=== PATIENT | male | born 1970 | race American Indian/Alaskan Native ===

== ENCOUNTER 2021-07-16 02:56 | Emergency (ER) | payer SELFPAY ==
[2021-07-16] MEDS ORDERED: HALOPERIDOL LACTATE 5 MG/1 ML INJ IM PRN (03:03)
[2021-07-16] MEDS ORDERED: TETANUS,DIPH,PERTUSS(ACELL) VACCINE 0.5 ML SYRINGE IM ONE (03:03)
[2021-07-16] MEDS ORDERED: LORazepam 2 MG/ML VIAL IM PRN (03:03)
--- NOTE | 2021-07-16 03:04 | Emergency Department Report ---
ED General Adult HPI - General Chief complaint: Alcohol Stated complaint: ETOH Time Seen by Provider: 07/16/21 02:58 Source: patient, EMS (Verbal report received from emergency medical services. EMS documentation not available at time of chart dictation ), RN notes reviewed Limitations: Altered Mental Status, Physical Limitation, Other (Alcohol intoxication) - History of Present Illness Initial comments: This is a 51-year-old gentleman. He is brought to the hospital by emergency medical services with an EMS articulated complaint of "drunk." As per verbal report from emergency medical services, the patient was found on the street by passersby or police department, and 911 was activated. The patient is awake, intoxicated, moving 4 extremities. He does not endorse physical pain. The patient will follow some commands. He has abrasions to left scalp. He is not accompanied by friends or family at this time for collateral information. The patient is indicating that he needs to go to the bathroom and urinate. -: unknown Location: head - Related Data Previous Rx's Medication Instructions Recorded Last Taken Type Multivitamin with Folic Acid [[facility] 400 mcg PO QDAY #30 tablet 07/16/21 Unknown Rx One Daily Essential Tablet] chlordiazePOXIDE [Librium] 25 mg PO Q6H PRN #25 capsule 07/16/21 Unknown Rx Allergies Allergy/AdvReac Type Severity Reaction Status Date / Time Unable to Assess Allergy Unverified 07/16/21 03:32 ED Review of Systems ROS: Stated complaint: ETOH Other details as noted in HPI Comment: Unobtainable due to pts medical conditions ED Past Medical Hx - Medications Home Medications: Home Medications Medication Instructions Recorded Confirmed Last Taken Type Multivitamin with Folic Acid [[facility] 400 mcg PO QDAY #30 tablet 07/16/21 Unknown Rx One Daily Essential Tablet] chlordiazePOXIDE [Librium] 25 mg PO Q6H PRN #25 capsule 07/16/21 Unknown Rx ED Physical Exam - General Limitations: Altered Mental Status General appearance: appears intoxicated - Head Head exam: Present: normocephalic, other (Left temporal abrasion) - Eye Eye exam: Present: normal appearance, EOMI - ENT ENT exam: Present: normal exam, normal orophraynx, mucous membranes moist, normal external ear exam - Neck Neck exam: Present: normal inspection, full ROM. Absent: tenderness, meningismus - Respiratory Respiratory exam: Present: decreased breath sounds. Absent: respiratory distres s, wheezes, rales, rhonchi, stridor - Cardiovascular Cardiovascular Exam: Present: regular rate, normal rhythm, normal heart sounds. Absent: bradycardia, tachycardia, irregular rhythm, systolic murmur, diastolic murmur, rubs, gallop - GI/Abdominal GI/Abdominal exam: Present: soft. Absent: distended, tenderness, guarding, rebound, rigid, pulsatile mass - Rectal Rectal exam: Present: deferred - Extremities Exam Extremities exam: Present: normal inspection, full ROM, other (2+ pulses noted in the bilateral upper and lower extremities. There is no palpable cord. negative Homans sign. Muscular compartments are soft. The pelvis is stable.). Absent: pedal edema, calf tenderness - Back Exam Back exam: Present: normal inspection. Absent: tenderness, CVA tenderness (R), CVA tenderness (L), paraspinal tenderness, vertebral tenderness - Neurological Exam Neurological exam: Present: other (Patient is awake. The patient is moving 4 extremities.) - Psychiatric Psychiatric exam: Present: flat affect - Skin Skin exam: Present: warm, abrasion, ecchymosis ED Course Vital Signs 07/16/21 07/16/21 07/16/21 02:56 03:12 03:30 Temperature 97.6 F Pulse Rate 81 Respiratory 16 16 Rate Blood Pressure 135/82 Blood Pressure [Right] O2 Sat by Pulse 91 93 97 Oximetry 07/16/21 07/16/21 07/16/21 03:42 04:00 04:30 Temperature Pulse Rate 71 97 H 70 Respiratory 14 18 15 Rate Blood Pressure 135/79 137/101 122/79 Blood Pressure [Right] O2 Sat by Pulse 99 98 97 Oximetry 07/16/21 07/16/21 07/16/21 05:00 05:30 06:00 Temperature Pulse Rate 80 65 74 Respiratory 15 13 12 Rate Blood Pressure 129/72 121/61 106/59 Blood Pressure [Right] O2 Sat by Pulse 88 98 97 Oximetry 07/16/21 07/16/21 07/16/21 06:30 07:00 07:30 Temperature Pulse Rate 79 67 70 Respiratory 14 13 11 L Rate Blood Pressure 102/58 116/72 104/63 Blood Pressure [Right] O2 Sat by Pulse 99 99 99 Oximetry 07/16/21 08:20 Temperature Pulse Rate 70 Respiratory 12 Rate Blood Pressure Blood Pressure 104/63 [Right] O2 Sat by Pulse 99 Oximetry - Reevaluation(s) Reevaluation #1: 07/16/21 04:33 Differential diagnosis, including but not limited to: Alcohol intoxication, electrolyte derangement, closed head injury, cervical spine injury, abrasion Assessment and plan: 51-year-old gentleman who is obviously intoxicated, negative CT scan of the brain and cervical spine for traumatic findings, laboratory studies unremarkable except for elevated blood alcohol level as expected. O2 sat 91% reviewed and appreciated, x-ray the chest pending. Plan is to observe pending clinical sobriety, or, if a sober adult can be found that can pick the patient up, discharge this patient with a sober adult. He is given a tetanus vaccination. Reassess after x-ray has been performed. 07/16/21 05:25 X-ray of the chest is negative for acute findings. Patient does require some degree of supplemental oxygen, 2 L, likely secondary to alcohol intoxication. Care be transferred to the oncoming ER provider, Dr Evelyn Connolly, to reassess when clinically sober, and to ascertain need for supplemental oxygen. Anticipate that patient should be able to be discharged once sober, and once oxygenation improves, with alcohol metabolism 07/17/21 16:25 ED Medical Decision Making - Lab Data Result diagrams: 07/16/21 03:11 07/16/21 03:11 Vital Signs 07/16/21 07/16/21 07/16/21 02:56 03:12 03:30 Temperature 97.6 F Pulse Rate 81 Respiratory 16 16 Rate Blood Pressure 135/82 O2 Sat by Pulse 91 93 97 Oximetry 07/16/21 07/16/21 03:42 04:00 Temperature Pulse Rate 71 97 H Respiratory 14 18 Rate Blood Pressure 135/79 137/101 O2 Sat by Pulse 99 98 Oximetry Lab Results 07/16/21 07/16/21 07/16/21 Range/Units 03:11 03:11 03:11 WBC 7.0 (4.5-11.0) K/mm3 RBC 3.89 (3.65-5.03) M/mm3 Hgb 13.0 (11.8-15.2) gm/dl Hct 39.1 (35.5-45.6) % MCV 100 H (84-94) fl MCH 33 H (28-32) pg MCHC 33 (32-34) % RDW 14.1 (13.2-15.2) % Plt Count 231 (140-440) K/mm3 Sodium 141 (137-145) mmol/L Potassium 3.5 L (3.6-5.0) mmol/L Chloride 102.6 (98-107) mmol/L Carbon Dioxide 24 (22-30) mmol/L Anion Gap 18 mmol/L BUN 12 (9-20) mg/dL Creatinine 0.9 (0.8-1.3) mg/dL Estimated GFR > 60 ml/min BUN/Creatinine Ratio 13 % Glucose 120 H (75-100) mg/dL Calcium 8.9 (8.4-10.2) mg/dL Magnesium 1.90 (1.7-2.3) mg/dL Total Creatine Kinase (55-170) units/L Salicylates (2.8-20.0) mg/dL Acetaminophen (10.0-30.0) ug/mL Plasma/Serum Alcohol 0.54 H (0-0.07) % 07/16/21 07/16/21 07/16/21 Range/Units 03:11 03:11 03:11 WBC (4.5-11.0) K/mm3 RBC (3.65-5.03) M/mm3 Hgb (11.8-15.2) gm/dl Hct (35.5-45.6) % MCV (84-94) fl MCH (28-32) pg MCHC (32-34) % RDW (13.2-15.2) % Plt Count (140-440) K/mm3 Sodium (137-145) mmol/L Potassium (3.6-5.0) mmol/L Chloride (98-107) mmol/L Carbon Dioxide (22-30) mmol/L Anion Gap mmol/L BUN (9-20) mg/dL Creatinine (0.8-1.3) mg/dL Estimated GFR ml/min BUN/Creatinine Ratio % Glucose (75-100) mg/dL Calcium (8.4-10.2) mg/dL Magnesium (1.7-2.3) mg/dL Total Creatine Kinase 797 H (55-170) units/L Salicylates < 0.3 L (2.8-20.0) mg/dL Acetaminophen 5.0 L (10.0-30.0) ug/mL Plasma/Serum Alcohol (0-0.07) % - Radiology Data Radiology results: pending, report reviewed, image reviewed CT HEAD WITHOUT CONTRAST INDICATION / CLINICAL INFORMATION: Alcohol Intoxication closed head injury. TECHNIQUE: CT head was performed without administration of intravenous contrast. All CT scans at this location are performed using CT dose reduction for ALARA by means of automated exposure control. COMPARISON: None available. FINDINGS: CEREBRAL HEMISPHERES: There is no evidence of large territorial infarction or significant abnormality of minor- white matter differentiation. No midline shift. Ventricles appear within normal limits. Basal cisterns patent. HEMORRHAGE: None. CEREBELLUM / BRAINSTEM: No significant abnormality. ORBITS: No significant abnormality. SOFT TISSUES: No significant abnormality. SKULL: No significant abnormality. PARANASAL SINUSES / MASTOID AIR CELLS: Partial complete opacification of anterior ethmoid air cells is demonstrated. Ness bullosa middle turbinate. Mastoid air cells clear. ADDITIONAL FINDINGS: None. IMPRESSION: 1. No acute intracranial abnormality. Signer Name: Rob Astudillo II, MD Signed: 07/16/2021 2:53 AM Workstation Name: [id number] CT CERVICAL SPINE WITHOUT CONTRAST INDICATION / CLINICAL INFORMATION: Alcohol Intoxication closed head injury. TECHNIQUE: Axial CT images were obtained through the cervical spine. Sagittal and coronal reformatted images were produced. All CT scans at this location are performed using CT dose reduction for ALARA by means of automated exposure control. COMPARISON: CT head same date. FINDINGS: SKULL BASE: No significant abnormality of the skull base. CRANIOCERVICAL JUNCTION: No significant abnormality of the craniocervical junct ion. ALIGNMENT: No significant abnormality of alignment. VERTEBRAL BODIES: Vertebral body heights fairly uniform throughout. No acute fracture. DISK SPACES: Mild/moderate loss of intervertebral disc space most prevalent at C6-7 and C7-T1. FACET JOINTS: No significant abnormality of facet articulations. No acute fractures. CENTRAL CANAL: No severe central stenosis. SOFT TISSUES: No significant abnormality of soft tissues or musculature. THYROID: No significant abnormality. UPPER CHEST: No significant abnormality of the visualized chest. ADDITIONAL FINDINGS: None. IMPRESSION: 1. No evidence of acute osseous injury. Signer Name: Rob Astudillo II, MD Signed: 07/16/2021 2:55 AM Workstation Name: [id number] Critical care attestation.: If time is entered above; I have spent that time in minutes in the direct care of this critically ill patient, excluding procedure time. ED Disposition Clinical Impression: Alcohol intoxication, Closed head injury Disposition: HOME / SELF CARE / HOMELESS Is pt being admited?: No Does the pt Need Aspirin: No Condition: Stable Additional Instructions: Do not drive or operate motor vehicles until cleared to do so by a primary care doctor. Discontinue alcohol consumption. Take the medications as directed, use the Librium medication as needed for sensation of alcohol withdrawal, such as shakes or tremors. Follow-up with your primary care doctor or health department within the next week. Please return to the emergency room right away with new pain, worsened pain, migration of pain, projectile vomiting, change in mental status, confusion, smiley bility tolerate liquid feeds, new, worsened or different symptoms not present on the initial emergency room evaluation Prescriptions: Multivitamin with Folic Acid [[facility] One Daily Essential Tablet] 400 mcg PO QDAY #30 tablet chlordiazePOXIDE [Librium] 25 mg PO Q6H PRN #25 capsule PRN Reason: Alcohol Withdrawal Referrals: [facility] [Outside] - 3-5 Days [facility] [Outside] - 3-5 Days
[2021-07-16 03:46] LABS: Hematocrit 39.1 % (35.5-45.6); Mean Corpuscular HGB Conc 33 % (32-34); Mean Corpuscular Volume 100 fl (84-94); Platelet Count 231 K/mm3 (140-440); Red Blood Count 3.89 M/mm3 (3.65-5.03); Red Cell Distribution Width 14.1 % (13.2-15.2)
[2021-07-16 03:54] LABS: BUN/Creatinine Ratio 13; Blood Urea Nitrogen 12 mg/dL (9-20); Calcium 8.9 mg/dL (8.4-10.2); Hemolysis Index 9
--- NOTE | 2021-07-16 03:57 | Cat Scan Report ---
CT HEAD WITHOUT CONTRAST INDICATION / CLINICAL INFORMATION: Alcohol Intoxication closed head injury. TECHNIQUE: CT head was performed without administration of intravenous contrast. All CT scans at this location are performed using CT dose reduction for ALARA by means of automated exposure control. COMPARISON: None available. FINDINGS: CEREBRAL HEMISPHERES: There is no evidence of large territorial infarction or significant abnormality of minor-white matter differentiation. No midline shift. Ventricles appear within normal limits. Basa l cisterns patent. HEMORRHAGE: None. CEREBELLUM / BRAINSTEM: No significant abnormality. ORBITS: No significant abnormality. SOFT TISSUES: No significant abnormality. SKULL: No significant abnormality. PARANASAL SINUSES / MASTOID AIR CELLS: Partial complete opacification of anterior ethmoid air cells i s demonstrated. Ness bullosa middle turbinate. Mastoid air cells clear. ADDITIONAL FINDINGS: None. IMPRESSION: 1. No acute intracranial abnormality. Signer Name: Rob Astudillo II, MD Signed: 07/16/2021 3:53 AM Workstation Name: [id number]
--- NOTE | 2021-07-16 03:59 | Cat Scan Report ---
CT CERVICAL SPINE WITHOUT CONTRAST INDICATION / CLINICAL INFORMATION: Alcohol Intoxication closed head injury. TECHNIQUE: Axial CT images were obtained through the cervical spine. Sagittal and coronal reformatted images were produced. All CT scans at this location are performed using CT dose reduction for ALARA by means of automated exposure control. COMPARISON: CT head same date. FINDINGS: SKULL BASE: No significant abnormality of the skull base. CRANIOCERVICAL JUNCTION: No significant abnormality of the craniocervical junction. ALIGNMENT: No significant abnormality of alignment. VERTEBRAL BODIES: Vertebral body heights fairly uniform throughout. No acute fracture. DISK SPACES: Mild/moderate loss of intervertebral disc space most prevalent at C6-7 and C7-T1. FACET JOINTS: No significant abnormality of facet articulations. No acute fractures. CENTRAL CANAL: No severe central stenosis. SOFT TISSUES: No significant abnormality of soft tissues or musculature. THYROID: No significant abnormality. UPPER CHEST: No significant abnormality of the visualized chest. ADDITIONAL FINDINGS: None. IMPRESSION: 1. No evidence of acute osseous injury. Signer Name: Rob Astudillo II, MD Signed: 07/16/2021 3:55 AM Workstation Name: [id number]
--- NOTE | 2021-07-16 04:56 | XRay Report ---
CHEST 1 VIEW INDICATION / CLINICAL INFORMATION: Alcohol intoxication, hypoxia. COMPARISON: None available. FINDINGS: Heart size appears within normal limits. Mediastinal contour demonstrates no significant abnormality. Pulmonary vasculature appears within normal limits. Lungs are clear. Bones and soft tissues demonstr ate no significant abnormalities. IMPRESSION: 1. No active cardiopulmonary disease. Signer Name: Rob Astudillo II, MD Signed: 07/16/2021 4:52 AM Workstation Name: [id number]
[2021-07-16 08:47] VITALS: BP 104/63
== END 2021-07-16 08:20 | disposition home or self-care (01) ==
LOC: ED 02:56
DX: S09.90XA Unspecified injury of head, initial encounter (principal); F10.129 Alcohol abuse with intoxication, unspecified; X58.XXXA Exposure to other specified factors, initial encounter; Y93.89 Activity, other specified; Y92.89 Other specified places as the place of occurrence of the external cause; Y99.8 Other external cause status
CPT/HCPCS: 36415; 70450; 71045; 72125; 80048; 80320; 82550; 83735; 85027; 90471; 90715; 99284; G0480